=== PATIENT | female | born 1980 | race African-American/Black ===

== ENCOUNTER 2017-03-26 19:34 | Emergency (ER) | payer MEDICAID ==
[~2017-03-26] VITALS: Ht 180.3 cm; Wt 68.0 kg
[~2017-03-26 19:34] MED LIST: PREN-88 PO
[2017-03-26] MEDS ORDERED: DICYCLOMINE 10 MG/5 ML ORAL SYR PO STA (23:55)
[2017-03-26] MEDS ORDERED: ONDANSETRON 4MG ODT PO STA (23:55)
[2017-03-26] MEDS ORDERED: ACETAMINOPHEN WITH CODEINE 300/30MG TABLET PO STA (23:55)
[2017-03-26] MEDS ORDERED: MAGNESIUM/ALUMINUM HYDROXIDE/SIMETHICONE 30ML UDC PO STA (23:55)
[2017-03-26] MEDS ORDERED: VISCOUS LIDOCAINE 2% 15 ML UDC PO STA (23:55)
[2017-03-27] MEDS ORDERED: LIDOCAINE HCL 1% 20ML VIAL (Pyxis) INJ MC ONE
[2017-03-27] MEDS ORDERED: TETANUS, DIPHTHERIA, PERTUSSIS VAC/PF 0.5ML (>7YR OLD) IM ONE
[2017-03-27 00:25] VITALS: BP 139/95
[2017-03-27 01:21] LABS: BASOPHILS % 0.8 % (0.0-2.0); EOSINOPHILS % 2.3 % (0.0-5.0); HEMATOCRIT. 29.6 % (36.0-48.0); HEMOGLOBIN. 9.1 g/dL (12.0-16.0); LYMPHOCYTES % 27.8 % (20.0-50.0); MEAN CORPUSCULAR HEMOGLOBIN 21.8 pg (28.0-32.0); MEAN CORPUSCULAR VOLUME 70.7 fL (81.0-99.0); MEAN PLATELET VOLUME 6.9 fl (7.4-10.4); MONOCYTES % 12.8 % (2.0-8.0); NEUTROPHILS % 56.3 % (40.0-76.0); PLATELET 516 x1000/uL (130-400); RED BLOOD CELL COUNT 4.19 mill/uL (4.2-5.4); RED CELL DISTRIBUTION WIDTH 18.5 % (11.6-14.6)
[2017-03-27 01:24] LABS: CHLORIDE 102 mEq/L (98-107)
[2017-03-27 01:26] LABS: INR 1.1; PROTHROMBIN TIME 11.8 sec
[2017-03-27 01:33] LABS: CARBON DIOXIDE 27 mEq/L (21-32)
[2017-03-27] MEDS ORDERED: CEPHALEXIN 500MG CAPSULE PO ONE (01:45)
[2017-03-27] MEDS ORDERED: SULFAMETHOXAZOLE/TRIMETHOPRIM 800/160MG TABLET PO ONE (01:45)
== END 2017-03-27 02:15 | disposition home or self-care (01) ==
LOC: ER 19:57
DX: L02.415 Cutaneous abscess of right lower limb (principal); F31.9 Bipolar disorder, unspecified; Z88.1 Allergy status to other antibiotic agents; F17.210 Nicotine dependence, cigarettes, uncomplicated
CPT/HCPCS: 10060; 36415; 80053; 83690; 85025; 85610; 87070; 87205; 90471; 90715; 99284; J3490; Q0162; X7700; Z7610

== ENCOUNTER 2017-08-26 23:27 | Emergency (ER) | payer MEDICAID ==
[~2017-08-26] VITALS: Ht 165.1 cm; Wt 54.0 kg
[2017-08-26 23:35] VITALS: BP 140/76
== END 2017-08-27 02:00 | disposition left against medical advice (07) ==
LOC: ER 23:36
DX: Z53.21 Procedure and treatment not carried out due to patient leaving prior to being seen by health care provider (principal)

== ENCOUNTER 2019-11-20 11:06 | Emergency (ER) | payer SELFPAY ==
[~2019-11-20] VITALS: Ht 170.2 cm; Wt 73.0 kg
[2019-11-20 12:18] LABS: BASOPHILS % 0.6 % (0.0-2.0); EOSINOPHILS % 3.6 % (0.0-5.0); HEMATOCRIT. 30.8 % (36.0-48.0); HEMOGLOBIN. 9.7 g/dL (12.0-16.0); LYMPHOCYTES % 43.3 % (20.0-50.0); MEAN CORPUSCULAR HEMOGLOBIN 23.3 pg (28.0-32.0); MEAN CORPUSCULAR VOLUME 73.9 fL (81.0-99.0); MEAN PLATELET VOLUME 6.9 fl (7.4-10.4); MONOCYTES % 14.3 % (2.0-8.0); NEUTROPHILS % 38.2 % (40.0-76.0); PLATELET 374 x1000/uL (130-400); RED BLOOD CELL COUNT 4.16 mill/uL (4.2-5.4); RED CELL DISTRIBUTION WIDTH 19.3 % (11.6-14.6)
[2019-11-20 12:25] LABS: CHLORIDE 103 mEq/L (98-107)
[2019-11-20 12:30] LABS: ETHANOL BLOOD < 10 mg/dL
[2019-11-20 14:28] LABS: CLARITY URINE CLEAR (CLEAR); COLOR URINE YELLOW (YELLOW); KETONES URINE NEGATIVE (NEGATIVE); LEUKOCYTE ESTERASE URINE NEGATIVE (NEGATIVE); NITRITE URINE NEGATIVE (NEGATIVE); OCCULT BLOOD URINE NEGATIVE (NEGATIVE); PH URINE 6.5 (4.5-8.0); PROTEIN URINE NEGATIVE (NEGATIVE); SPECIFIC GRAVITY URINE 1.015 (1.005-1.030)
[2019-11-20 15:05] LABS: *BARBITURATES SCREEN URINE NEGATIVE (NEGATIVE); *BENZODIAZEPINES SCREEN URINE NEGATIVE (NEGATIVE); CANNABINOID URINE SCREEN NEGATIVE (NEGATIVE); PHENCYCLIDINE URINE SCREEN NEGATIVE (NEGATIVE)
[2019-11-20 15:06] LABS: *COCAINE SCREEN URINE NEGATIVE (NEGATIVE); METHADONE URINE SCREEN NEGATIVE (NEGATIVE)
[2019-11-20 15:42] LABS: *AMPHETAMINES SCREEN URINE PRESUMTIVE POSITIVE (NEGATIVE)
[2019-11-20 18:47] VITALS: BP 136/70
== END 2019-11-21 05:50 | disposition home or self-care (01) ==
LOC: ER 11:06
DX: R41.82 Altered mental status, unspecified (principal); F15.10 Other stimulant abuse, uncomplicated; F16.10 Hallucinogen abuse, uncomplicated; D50.9 Iron deficiency anemia, unspecified; F14.10 Cocaine abuse, uncomplicated; Z88.1 Allergy status to other antibiotic agents
CPT/HCPCS: 36415; 80053; 80305; 80320; 81003; 85025; 99284; G0480

== ENCOUNTER 2021-08-21 10:13 | Emergency (ER) | payer SELFPAY ==
[~2021-08-21] VITALS: Ht 167.6 cm; Wt 56.0 kg
[2021-08-21 10:20] VITALS: BP 150/105
[2021-08-21] MEDS ORDERED: ACETAMINOPHEN 325MG TABLET PO STA (10:27)
[2021-08-21] MEDS ORDERED: AMOX-424 PO (14:29)
[2021-08-21] MEDS ORDERED: IBUP-2029 PO (14:29)
== END 2021-08-21 15:30 | disposition home or self-care (01) ==
LOC: ER 10:24
DX: S02.40EA Zygomatic fracture, right side, initial encounter for closed fracture (principal); X58.XXXA Exposure to other specified factors, initial encounter; Y93.89 Activity, other specified; Y92.89 Other specified places as the place of occurrence of the external cause; Y99.8 Other external cause status; F14.10 Cocaine abuse, uncomplicated
CPT/HCPCS: 70486; 99284

== ENCOUNTER 2021-09-25 21:26 | Emergency (ER) | payer SELFPAY ==
[~2021-09-25] VITALS: Ht 175.3 cm; Wt 82.0 kg
[~2021-09-25 21:26] MED LIST changes: +AMOX-424 PO; +IBUP-2029 PO
[2021-09-25 21:32] VITALS: BP 187/132
== END 2021-09-25 22:33 | disposition left against medical advice (07) ==
LOC: ER 22:00
DX: Z53.21 Procedure and treatment not carried out due to patient leaving prior to being seen by health care provider (principal)
CPT/HCPCS: 99283